=== PATIENT | female | born 1990 | race Caucasian/White ===

== ENCOUNTER 2017-12-06 18:33 | Emergency (ER) | payer BC, OTHER ==
[2017-12-06 18:41] VITALS: BP 119/71; PULSE 59; RESP 12; TEMP 98.2; O2SAT 100
[2017-12-06] MEDS ORDERED: SODIUM CHLORIDE 0.9% FLUSH 10 ML FLUSH IVF PRN (19:15)
--- NOTE | 2017-12-06 20:18 | PD ---
HPI Chief Complaint: Medical Clearance Time Seen by Provider: 19:00 Travel History International Travel<30 days: No Contact w/Intl Traveler<30days: No Traveled to known affect area: No History of Present Illness HPI Patient is a 27-year-old female presenting to the emergency department for evaluation of right breast tenderness and redness. Patient states it started Tuesday. She reports her pain is a 3 out of 10, it is worse with pressure or wearing a bra. She denies any fevers or chills. She also noted that she had one episode of bright red blood when she had a bowel movement today. She has no history of hemorrhoids. She denies any constipation or straining. She has no abdominal pain, she denies any nausea or vomiting. She has no significant past medical history. [facility]LY [facility] Past Medical History Medical History: Denies Significant Hx Diminished Hearing: No Immunizations Current: No ?: Unknown Past Surgical History Surgical History: No Previous Surgery Social History Alcohol Use: Yes (OCCANSIONALLY) Tobacco Use: No Substance Use: No Allergies-Medications (Allergen,Severity, Reaction): Coded Allergies: tree nut (Verified Allergy, Severe, 12/06/17) Reported Meds & Prescriptions Reported Meds & Active Scripts Active Review of Systems Except as stated in HPI: all other systems reviewed are Neg Gastrointestinal: Positive: Other (BRB in stool) Skin: Positive Lumps, Positive Change in Pigmentation Physical Exam Narrative GENERAL: Well-developed, well-nourished, alert female. Presenting no acute distress. SKIN: Warm and dry. 3 cm area of erythema and warmth to the 6 o'clock position of the right breast just below the nipple. No fluctuance noted, firmness noted to that area. HEAD: Atraumatic. Normocephalic. EYES: Pupils equal and round. No scleral icterus. No injection or drainage. ENT: No nasal bleeding or discharge. Mucous membranes pink and moist. NECK: Trachea midline. No JVD. CARDIOVASCULAR: Regular rate and rhythm. RESPIRATORY: No accessory muscle use. Clear to auscultation. Breath sounds equal bilaterally. GASTROINTESTINAL: Abdomen soft, non-tender, nondistended. Hepatic and splenic margins not palpable. Positive bowel sounds, no rebound, no guarding RECTAL EXAM: No masses or tenderness, stool is brown. MUSCULOSKELETAL: Extremities without clubbing, cyanosis, or edema. No obvious deformities. NEUROLOGICAL: Awake and alert. No obvious cranial nerve deficits. Motor grossly within normal limits. Five out of 5 muscle strength in the arms and legs. Normal speech. PSYCHIATRIC: Appropriate mood and affect; insight and judgment normal. Data Data Last Documented VS Vital Signs Date Time Temp Pulse Resp B/P (MAP) Pulse Ox O2 Delivery O2 Flow Rate FiO2 12/06/17 20:47 100 Room Air 12/06/17 18:41 98.2 59 12 119/71 (87) Orders Orders Us Breast Unilateral (12/06/17 ) Complete Blood Count With Diff (12/06/17 19:12) Comprehensive Metabolic Panel (12/06/17 19:12) Prothrombin Time / Inr (Pt) (12/06/17 19:12) Act Partial Throm Time (Ptt) (12/06/17 19:12) Iv Access Insert/Monitor (12/06/17 19:12) Oximetry (12/06/17 19:12) Sodium Chloride 0.9% Flush (Ns Flush) (12/06/17 19:15) Clindamycin 900 Mg/Ns Premix (Cleocin 90 (12/06/17 21:00) Labs Laboratory Tests Test 12/06/17 20:15 White Blood Count 8.3 TH/MM3 Red Blood Count 4.59 MIL/MM3 Hemoglobin 13.3 GM/DL Hematocrit 38.7 % Mean Corpuscular Volume 84.4 FL Mean Corpuscular Hemoglobin 29.1 PG Mean Corpuscular Hemoglobin Concent 34.4 % Red Cell Distribution Width 13.9 % Platelet Count 278 TH/MM3 Mean Platelet Volume 8.3 FL Neutrophils (%) (Auto) 53.5 % Lymphocytes (%) (Auto) 36.2 % Monocytes (%) (Auto) 6.1 % Eosinophils (%) (Auto) 3.5 % Basophils (%) (Auto) 0.7 % Neutrophils # (Auto) 4.4 TH/MM3 Lymphocytes # (Auto) 3.0 TH/MM3 Monocytes # (Auto) 0.5 TH/MM3 Eosinophils # (Auto) 0.3 TH/MM3 Basophils # (Auto) 0.1 TH/MM3 CBC Comment DIFF FINAL Differential Comment Prothrombin Time 10.5 SEC Prothromb Time International Ratio 1.0 RATIO Activated Partial Thromboplast Time 24.6 SEC Blood Urea Nitrogen 19 MG/DL Creatinine 0.95 MG/DL Random Glucose 81 MG/DL Total Protein 7.1 GM/DL Albumin 3.8 GM/DL Calcium Level 9.3 MG/DL Alkaline Phosphatase 71 U/L Aspartate Amino Transf (AST/SGOT) 21 U/L Alanine Aminotransferase (ALT/SGPT) 24 U/L Total Bilirubin 0.4 MG/DL Sodium Level 140 MEQ/L Potassium Level 3.9 MEQ/L Chloride Level 107 MEQ/L Carbon Dioxide Level 25.7 MEQ/L Anion Gap 7 MEQ/L Estimat Glomerular Filtration Rate 72 ML/MIN MDM Medical Decision Making Medical Screen Exam Complete: Yes Emergency Medical Condition: Yes Interpretation(s) Laboratory Tests Test 12/06/17 20:15 White Blood Count 8.3 TH/MM3 Red Blood Count 4.59 MIL/MM3 Hemoglobin 13.3 GM/DL Hematocrit 38.7 % Mean Corpuscular Volume 84.4 FL Mean Corpuscular Hemoglobin 29.1 PG Mean Corpuscular Hemoglobin Concent 34.4 % Red Cell Distribution Width 13.9 % Platelet Count 278 TH/MM3 Mean Platelet Volume 8.3 FL Neutrophils (%) (Auto) 53.5 % Lymphocytes (%) (Auto) 36.2 % Monocytes (%) (Auto) 6.1 % Eosinophils (%) (Auto) 3.5 % Basophils (%) (Auto) 0.7 % Neutrophils # (Auto) 4.4 TH/MM3 Lymphocytes # (Auto) 3.0 TH/MM3 Monocytes # (Auto) 0.5 TH/MM3 Eosinophils # (Auto) 0.3 TH/MM3 Basophils # (Auto) 0.1 TH/MM3 CBC Comment DIFF FINAL Differential Comment Prothrombin Time 10.5 SEC Prothromb Time International Ratio 1.0 RATIO Activated Partial Thromboplast Time 24.6 SEC Blood Urea Nitrogen 19 MG/DL Creatinine 0.95 MG/DL Random Glucose 81 MG/DL Total Protein 7.1 GM/DL Albumin 3.8 GM/DL Calcium Level 9.3 MG/DL Alkaline Phosphatase 71 U/L Aspartate Amino Transf (AST/SGOT) 21 U/L Alanine Aminotransferase (ALT/SGPT) 24 U/L Total Bilirubin 0.4 MG/DL Sodium Level 140 MEQ/L Potassium Level 3.9 MEQ/L Chloride Level 107 MEQ/L Carbon Dioxide Level 25.7 MEQ/L Anion Gap 7 MEQ/L Estimat Glomerular Filtration Rate 72 ML/MIN Vital Signs Date Time Temp Pulse Resp B/P (MAP) Pulse Ox O2 Delivery O2 Flow Rate FiO2 12/06/17 18:41 98.2 59 12 119/71 (87) 100 Differential Diagnosis Mastitis versus breast abscess versus cellulitis versus hemorrhoids versus anal fissure versus other Narrative Course Patient is a well-appearing 27-year-old female presenting with a cellulitic area to her right breast as well as an episode of bright red blood on toilet paper when she wiped after a bowel movement this morning. Abdominal exam is benign, patient's vital signs are stable. Ultrasound and labs ordered and pending. Ultrasound of the right breast is negative for Breast abscess. Patient was given clindamycin IV now. Labs are still pending. Labs reviewed, no acute findings identified. Patient is encouraged to follow- up with her primary doctor. She is encouraged to return to emergency department any new or worsening symptoms. Patient was advised to return to emergency department for any new worsening symptoms. She is encouraged to complete full course of antibiotics as prescribed. Diagnosis Primary Impression: Cellulitis of right breast Referrals: [facility] Primary Care Physician Patient Instructions: Cellulitis (ED), General Instructions Additional Instructions: Complete full course of antibiotics as prescribed Return to emergency department for any new worsening symptoms Follow-up with your primary doctor Med/Other Pt SpecificInfo: Prescription(s) given Scripts Saccharomyces Boulardii (Florastor) 250 Mg Cap 250 MG PO BID for Nutritional Supplement for 10 Days, #20 CAP 0 Refills Prov: Aziza Coffman 12/06/17 Clindamycin (Clindamycin) 300 Mg Cap 300 MG PO TID for Infection for 10 Days, CAP 0 Refills Prov: Aziza Coffman 12/06/17 Disposition: 01 DISCHARGE HOME Condition: Stable Aziza Coffman Dec 06, 2017 20:18
--- NOTE | 2017-12-06 20:27 | RADRPT ---
EXAM DATE/TIME: 12/06/2017 19:46 [place] COMPARISON: No previous studies available for comparison. INDICATIONS : Abscess. MEDICAL HISTORY : None. SURGICAL HISTORY : None. ENCOUNTER: Initial ACUITY: 2 days PAIN SCORE: 3/10 LOCATION: Right breast. FINDINGS: No abnormal fluid collections are identified. This evaluation is not intended to determine if breast carcinoma is present. CONCLUSION: 1. There is no evidence of abscess. Feliciano Naylor MD on December 06, 2017 at 20:25 Board Certified Radiologist. This report was verified electronically.
[2017-12-06 20:47] VITALS: O2SAT 100
[2017-12-06] MEDS ORDERED: CLINDAMYCIN 900 MG/NS PREMIX 50 ML IV ONE (21:00)
[2017-12-06 21:05] LABS: AUTOMATED NEUTROPHIL # 4.4 TH/MM3 (1.8-7.7); BASOPHIL # 0.1 TH/MM3 (0-0.2); BASOPHIL % 0.7 % (0.0-2.0); EOSINOPHIL # 0.3 TH/MM3 (0-0.4); EOSINOPHIL % 3.5 % (0.0-4.0); HEMATOCRIT 38.7 % (35.0-46.0); HEMOGLOBIN 13.3 GM/DL (11.6-15.3); LYMPH % 36.2 % (9.0-44.0); MEAN CELL VOLUME 84.4 FL (80.0-100.0); MEAN CORPUSCULAR HEMOGLOBIN 29.1 PG (27.0-34.0); MEAN CORPUSCULAR HGB CONC 34.4 % (32.0-36.0); MEAN PLATELET VOLUME 8.3 FL (7.0-11.0); MONO % 6.1 % (0.0-8.0); MONOCYTE # 0.5 TH/MM3 (0-0.9); NEUT % 53.5 % (16.0-70.0); PLATELET COUNT 278 TH/MM3 (150-450); RED BLOOD COUNT 4.59 MIL/MM3 (4.00-5.30); RED CELL DISTRIBUTION WIDTH 13.9 % (11.6-17.2); WHITE BLOOD COUNT 8.3 TH/MM3 (4.0-11.0)
[2017-12-06 21:14] LABS: PROTHROMBIN TIME - PATIENT 10.5 SEC (9.8-11.6)
[2017-12-06 21:17] LABS: ALBUMIN 3.8 GM/DL (3.4-5.0); AST (GOT) 21 U/L (15-37); BICARBONATE 25.7 MEQ/L (21.0-32.0); BLOOD UREA NITROGEN 19 MG/DL (7-18); CALCIUM 9.3 MG/DL (8.5-10.1); CHLORIDE 107 MEQ/L (98-107); CREATININE 0.95 MG/DL (0.50-1.00); GLOMERULAR FILTRATION RATE 72 ML/MIN (>89); GLUCOSE,RANDOM 81 MG/DL (74-106); SODIUM (NA) 140 MEQ/L (136-145)
[2017-12-06 21:18] LABS: ALT (GPT) 24 U/L (10-53)
[2017-12-06 21:20] LABS: ALKALINE PHOSPHATASE 71 U/L (45-117); TOTAL BILIRUBIN ADULT 0.4 MG/DL (0.2-1.0); TOTAL PROTEIN 7.1 GM/DL (6.4-8.2)
[2017-12-06] MEDS ORDERED: FLOR250C PO (21:38)
[2017-12-06] MEDS ORDERED: CLIN300C5 PO (21:38)
== END 2017-12-06 22:00 | disposition home or self-care (01) ==
LOC: NEPD 18:33
DX: N61.0 Mastitis without abscess (principal)
CPT/HCPCS: 76642; 80053; 85025; 85610; 85730; 99284